=== PATIENT | male | born 1990 ===

== ENCOUNTER 2019-06-02 12:56 | Emergency (ER) | payer OTHER ==
[~2019-06-02] VITALS: Ht 172.7 cm; Wt 79.4 kg
== END 2019-06-02 17:29 | disposition home or self-care (01) ==
LOC: ER 12:56
DX: R43.0 Anosmia (principal)

== ENCOUNTER 2023-04-19 22:20 | Emergency (ER) | payer OTHER ==
[~2023-04-19] VITALS: Ht 172.7 cm; Wt 90.7 kg
[2023-04-20] MEDS ORDERED: NORFLEX100MG PO (02:58)
[2023-04-20] MEDS ORDERED: KETO10TA2 PO (02:58)
== END 2023-04-20 03:09 ==
LOC: ER 22:20
DX: R51.9 Headache, unspecified (principal); Z20.822 Contact with and (suspected) exposure to COVID-19